=== PATIENT | male | born 1985 | race Caucasian/White ===

== ENCOUNTER 2018-07-07 19:23 | Inpatient (IN) | payer BC ==
[~2018-07-07] VITALS: Ht 170.2 cm; Wt 102.1 kg
--- NOTE | ~2018-07-07 | HP ---
PATIENT: ADAN LLOYD MEDICAL RECORD: [id number] ACCOUNT: [id number] LOCATION:[id number] : 84 ADMISSION DATE: 07/07/18 HISTORY AND PHYSICAL EXAMINATION HISTORY OF PRESENT ILLNESS: Mr. Lloyd is a 33-year-old male started having pain in his jaw and swelling about 3 days ago was progressively got more swollen and has developed more trismus and pain in his neck. He presented to the [facility] where they did a CT which showed a neck abscess and he was transferred here to [facility]. PAST MEDICAL HISTORY: Otherwise healthy. Denies diabetes, asthma, or any significant medical problems. PAST SURGICAL HISTORY: He had surgery on his foot. CURRENT MEDICATIONS: None. ALLERGIES: No known drug allergies. PHYSICAL EXAMINATION: GENERAL: He is healthy-appearing. He is really not in any distress at all. He is breathing comfortably. EYES: Sclerae and conjunctivae are normal. EARS: Canals and TMs are normal. NOSE: No masses, polyps, or drainage. Really look in his face, it looks normal. He is able to close his mouth. Opening his mouth, he has got a moderate amount of trismus. Tongue is really in a normal position. The pharynx looks normal. Palpation of the floor of the mouth, floor of the mouth really is not elevated. It is somewhat tender on both sides and feels slightly firm or swollen, but really not particularly abnormal just looking at. The neck again also does not look really swollen, but he is a thick, stocky mary. The submandibular area is tender, but not obviously swollen. There is no cellulitis or obvious changes. CT shows gas in the submental area consistent with probably a pending Rafi's angina in the next few days if left untreated. He has got a broken tooth, maxillary tooth, that is draining purulence mandibular molar on the right side that was broken off below the gumline. IMPRESSION: Neck abscess. We will get him to OR for incision and drainage. His airway is okay. He probably would eventually develop Rafi's angina, but at this point does not need a tracheotomy or any airway intervention, does not look like should be able to drain this and treat him. I went over that with him and we will set him up to the OR urgently, get him there as soon as OR is available. TRANSINT:[id number] Voice Confirmation ID: [id number] DOCUMENT ID: [id number] HISTORY AND PHYSICAL [id number] ADAN LLOYD ERIC MD at 1254 CC: [id number] DICTATION DATE: 07/07/182145 BEHAVIORAL SCIENTIST: 07/07/18 2353 DIS IN 07/10/18 [place] [id number] [place] [id number]
--- NOTE | ~2018-07-07 | OP ---
PATIENT NAME: ADAN DAVIS MEDICAL RECORD: [id number] :83 LOCATION:[facility] ADMISSION DATE:07/07/18 SURGEON: HEYDI COLE MD DATE OF OPERATION: 07/08/2018 PREOPERATIVE DIAGNOSIS: Deep neck abscess/Rafi angina. POSTOPERATIVE DIAGNOSIS: Deep neck abscess/Rafi angina. PROCEDURE: Incision and drainage of deep neck abscess and extraction of mandibular molar. SURGEON: Heydi Cole MD ANESTHESIA: General orotracheal. BLOOD LOSS: Less than 5 cc. SPECIMENS: Multiple cultures. DRAINS: Cammy drain. COMPLICATIONS: None. DISPOSITION: Recovery, stable. DESCRIPTION OF PROCEDURE: The patient was brought to the operating room and placed in supine position, sedated and intubated by anesthesia. The eyes were taped. He was positioned. First, the tooth was addressed. He had a molar on the right side that he said was the source of the pain and the problem. There was definitely purulence around it. He had intact tooth in front of it and behind it and it was rotted off well below the gumline. Using a dental pick, there was just anterior root segment and posterior root segment. They were disconnected because the entire body of the tooth was gone. These were manipulated and wedged out in 2 separate pieces. There was some purulent drainage from the wound and from the tooth socket. Really, no bony edges to clean up there. Most of that was already decayed away. The neck was then prepped and draped in the usual sterile fashion. Horizontal submental incision was made, taken down through the subcutaneous fat with a #15 blade. Tonsil clamp was inserted straight up between the bellies of the digastric into obvious purulent cavity. Exceptionally pungent foul smelling yellow thin purulence drained. This was cultured. Once all the cultures were obtained, the rest of this was drained out, swabbed and then irrigated repeatedly with saline. Some mupirocin and a Cammy drain were placed, sutured to the skin and a dressing was placed. He was awakened, extubated, and transported to recovery in good condition. No complications. TRANSINT:[id number] Voice Confirmation ID: [id number] DOCUMENT ID: [id number] OPERATIVE REPORT [id number] RYANADAN HEYDI COLE MD at 1254 CC: [id number] DICTATION DATE: 07/08/18 0141 TEST DRILLER: 07/08/18 0936 DIS IN 07/10/18 [facility] [address] [place] [address]
[2018-07-07] MEDS ORDERED: IBUPROFEN800 MG PO (23:58)
[2018-07-08] VITALS (8 sets, daily range): BP systolic 114–146; BP diastolic 61–78; Ht 170.2 cm; Wt 102.1 kg
[2018-07-09] VITALS: BP 115/62
[2018-07-09 04:00] VITALS: BP 120/89
[2018-07-09 08:02] VITALS: BP 118/74
[2018-07-09 13:35] VITALS: BP 122/67
[2018-07-09 16:36] VITALS: BP 119/63
[2018-07-09 20:00] VITALS: BP 128/67
[2018-07-10] VITALS: BP 119/76
[2018-07-10 04:00] VITALS: BP 122/75
[2018-07-10 08:55] VITALS: BP 118/70
[2018-07-10 12:52] VITALS: BP 118/62
[2018-07-19 07:32] LABS: AEROBE ID Final report (())
[2018-07-20 19:11] LABS: AEROBE ID Final report (())
[2018-07-22 18:10] LABS: AEROBE ID Final report (())
== END 2018-07-10 15:32 | disposition home or self-care (01) | DRG 580 ==
LOC: D.ER 19:23 → D.MS 21:52 → D.EDHOLD 21:52 → D.MS 23:00
PROVIDERS: Otolaryngology
PROC: 0CDXXZ0 Extraction of Lower Tooth, Single, External Approach (ICD-10-PCS; 2018-07-08)
PROC: 0J940ZZ Drainage of Right Neck Subcutaneous Tissue and Fascia, Open Approach (ICD-10-PCS; principal; 2018-07-08 01:14)
DX: L02.11 Cutaneous abscess of neck (principal); K12.2 Cellulitis and abscess of mouth